=== PATIENT | female | born 1940 | race African-American/Black ===

== ENCOUNTER 2018-08-20 18:03 | Inpatient (IN) | payer OTHER, MEDICAID ==
[~2018-08-20] VITALS: Ht 177.8 cm; Wt 103.4 kg
[~2018-08-20 18:03] MED LIST: ACET-2853 PO; AMLO10TA80 PO; ASPI-1160 PO; ATOR40TA70 PO; CLON0.1T PO; CLOP75TA16 PO; FAMO20TA8 PO; INSASP SQ; LEVE500T19 PO; LISI40TA4 PO; METO-539 PO; MULT-1146 PO; [UNRECOGNIZED DRUG - CODE] PO
[2018-08-20 18:41] LABS: HEMATOCRIT. 33.3 % (36.0-48.0); LYMPHOCYTES % 31.3 % (20.0-50.0); MEAN CORPUSCULAR HEMOGLOBIN 28.7 pg (28.0-32.0); MEAN CORPUSCULAR VOLUME 87.1 fL (81.0-99.0); MEAN PLATELET VOLUME 9.4 fl (7.4-10.4); NEUTROPHILS % 53.7 % (40.0-76.0); PLATELET 209 x1000/uL (130-400); RED BLOOD CELL COUNT 3.83 mill/uL (4.2-5.4); RED CELL DISTRIBUTION WIDTH 16.1 % (11.6-14.6)
[2018-08-20 18:49] LABS: CHLORIDE 96 mEq/L (98-107)
[2018-08-20 18:53] LABS: ETHANOL BLOOD < 10 mg/dL
[2018-08-20 18:56] LABS: LDL CHOLESTEROL 109 mg/dL (5-100)
[2018-08-20] MEDS ORDERED: CEFTRIAXONE 1 G PREMIX 50 ML IV ONE (19:15)
[2018-08-20 19:24] LABS: BG BASE EXCESS 4.5 mmol/L (-2.0-2.0); BG CARBOXYHEMOGLOBIN 0.3 % (0.5-1.5); BG FRACTION INSPIRED OXYGEN 28; BG HCO3 ACT 29.1 mmol/L (22.0-26.0); BG METHEMOGLOBIN 0.5 % (0.0-1.5); BG OXYHEMOGLOBIN 98.2 % (94.0-97.0); BG PCO2 43.6 mmHg (35.0-45.0); BG PH 7.443 (7.350-7.450); BG PO2 145.7 mmHg (75.0-100.0); BG SAMPLE SITE RIGHT RADIAL; BG VENT MODE NASAL CANNULA
[2018-08-20 19:40] LABS: CLARITY URINE CLOUDY (CLEAR); COLOR URINE DARK YELLOW (YELLOW); KETONES URINE TRACE (NEGATIVE); LEUKOCYTE ESTERASE URINE 2+ (NEGATIVE); NITRITE URINE NEGATIVE (NEGATIVE); OCCULT BLOOD URINE 1+ (NEGATIVE); PROTEIN URINE 1+ (NEGATIVE); SPECIFIC GRAVITY URINE 1.023 (1.005-1.030)
[2018-08-20 19:50] LABS: *AMPHETAMINES SCREEN URINE NEGATIVE (NEGATIVE); *BARBITURATES SCREEN URINE NEGATIVE (NEGATIVE); *BENZODIAZEPINES SCREEN URINE NEGATIVE (NEGATIVE); *COCAINE SCREEN URINE NEGATIVE (NEGATIVE); METHADONE URINE SCREEN NEGATIVE (NEGATIVE)
[2018-08-20 19:51] LABS: CANNABINOID URINE SCREEN NEGATIVE (NEGATIVE); OPIATES URINE SCREEN NEGATIVE (NEGATIVE); PHENCYCLIDINE URINE SCREEN NEGATIVE (NEGATIVE)
[2018-08-21] VITALS (10 sets, daily range): BP systolic 120–182; BP diastolic 64–80
[2018-08-21] MEDS ORDERED: DEXTROSE 50% WATER 50ML SYRINGE IV PRN (01:45)
[2018-08-21] MEDS ORDERED: ASPIRIN 300MG SUPP PR PRN (01:45)
[2018-08-21] MEDS ORDERED: ACETAMINOPHEN 650MG SUPP PR PRN (01:45)
[2018-08-21] MEDS ORDERED: MORPHINE SULFATE 4 MG/ML CPJ (NOT FOR IM USE) IV PRN (01:45)
[2018-08-21] MEDS ORDERED: NA P230E RC (03:03)
[2018-08-21] MEDS ORDERED: IPRA3AMP9 HHN (03:03)
[2018-08-21] MEDS ORDERED: BISA10SU62 RC (03:03)
[2018-08-21] MEDS ORDERED: POTA-79 PO (03:03)
[2018-08-21] MEDS ORDERED: MOM MT (03:03)
[2018-08-21] MEDS: DEXT 5%/0.45% NACL KCL 20MEQ/L 1,000 ML IV SCH ×3 (04:06→23:22)
[2018-08-21 06:43] LABS: BASOPHILS % 0.6 % (0.0-2.0); EOSINOPHILS % 2.7 % (0.0-5.0); HEMATOCRIT. 32.2 % (36.0-48.0); HEMOGLOBIN. 10.6 g/dL (12.0-16.0); LYMPHOCYTES % 24.7 % (20.0-50.0); MEAN CORPUSCULAR HEMOGLOBIN 28.4 pg (28.0-32.0); MEAN CORPUSCULAR VOLUME 86.2 fL (81.0-99.0); MEAN PLATELET VOLUME 9.8 fl (7.4-10.4); MONOCYTES % 8.3 % (2.0-8.0); NEUTROPHILS % 63.7 % (40.0-76.0); PLATELET 195 x1000/uL (130-400); RED BLOOD CELL COUNT 3.73 mill/uL (4.2-5.4)
[2018-08-21] MEDS: BLOOD SUGAR DIAGNOSTIC STRIP TEST SCH ×4 (06:45→22:55)
[2018-08-21] MEDS: INSULIN LISPRO 100 UNITS/ML SUBCUT SCH ×4 (07:15→22:55)
[2018-08-21] MEDS: ASPIRIN 300MG SUPP PR SCH ×2 (09:00→10:21)
[2018-08-21] MEDS: ENOXAPARIN 40MG/0.4ML SYR SUBCUT SCH ×2 (09:00→10:19)
[2018-08-21] MEDS ORDERED: POTASSIUM CHLORIDE INJ 40 MEQ in DEXT 5% WATER 250 ML IV SCH (10:00)
[2018-08-21] MEDS: HYDRALAZINE 20MG/ML VIAL IV PRN ×2 (12:51→18:17)
[2018-08-21] MEDS ORDERED: NYSTATIN POWDER 15GM TOP SCH (17:00)
[2018-08-21] MEDS: NYSTATIN POWDER 15GM TOP SCH (18:17)
[2018-08-21] MEDS: ATORVASTATIN CALCIUM 40MG TABLET PO SCH (20:27)
[2018-08-21] MEDS ORDERED: CEFTRIAXONE 1 G PREMIX 50 ML IV SCH (21:00)
[2018-08-21] MEDS: CEFTRIAXONE 1 G PREMIX 50 ML IV SCH (22:56)
[2018-08-21] MEDS: LEVETIRACETAM 500 MG in SODIUM CHLORIDE 0.9% 100 ML IV SCH (23:28)
[2018-08-22] VITALS: BP 199/98
[2018-08-22] MEDS: HYDRALAZINE 20MG/ML VIAL IV PRN ×2 (00:17→09:41)
[2018-08-22 04:00] VITALS: BP 176/76
[2018-08-22] MEDS: INSULIN LISPRO 100 UNITS/ML SUBCUT SCH ×4 (06:11→20:45)
[2018-08-22] MEDS: BLOOD SUGAR DIAGNOSTIC STRIP TEST SCH ×4 (06:11→20:44)
[2018-08-22 07:26] LABS: BASOPHILS % 0.4 % (0.0-2.0); EOSINOPHILS % 0.9 % (0.0-5.0); HEMATOCRIT. 33.8 % (36.0-48.0); HEMOGLOBIN. 11.1 g/dL (12.0-16.0); MEAN CORPUSCULAR HEMOGLOBIN 28.3 pg (28.0-32.0); MEAN CORPUSCULAR VOLUME 86.1 fL (81.0-99.0); MEAN PLATELET VOLUME 9.5 fl (7.4-10.4); NEUTROPHILS % 72.7 % (40.0-76.0); PLATELET 208 x1000/uL (130-400); RED BLOOD CELL COUNT 3.93 mill/uL (4.2-5.4); RED CELL DISTRIBUTION WIDTH 16.1 % (11.6-14.6)
[2018-08-22 07:58] LABS: PHOSPHORUS 2.9 mg/dL (2.5-4.9)
[2018-08-22 08:00] VITALS: BP 187/80
[2018-08-22] MEDS: ASPIRIN 300MG SUPP PR SCH (09:41)
[2018-08-22] MEDS: LEVETIRACETAM 500 MG in SODIUM CHLORIDE 0.9% 100 ML IV SCH ×2 (09:41→20:30)
[2018-08-22] MEDS: ENOXAPARIN 40MG/0.4ML SYR SUBCUT SCH (09:41)
[2018-08-22] MEDS: DEXT 5%/0.45% NACL KCL 20MEQ/L 1,000 ML IV SCH ×2 (09:41→20:31)
[2018-08-22] MEDS: NYSTATIN POWDER 15GM TOP SCH ×3 (09:43→17:33)
[2018-08-22 10:41] LABS: CLARITY URINE CLEAR (CLEAR); COLOR URINE YELLOW (YELLOW); KETONES URINE NEGATIVE (NEGATIVE); LEUKOCYTE ESTERASE URINE 2+ (NEGATIVE); NITRITE URINE NEGATIVE (NEGATIVE); OCCULT BLOOD URINE TRACE (NEGATIVE); PROTEIN URINE 1+ (NEGATIVE); SPECIFIC GRAVITY URINE 1.011 (1.005-1.030); UROBILINOGEN URINE 0.2 E.U./dL (0.2-1.0)
[2018-08-22 12:00] VITALS: BP 161/71
[2018-08-22] MEDS ORDERED: AMLODIPINE 5MG TABLET NG SCH (13:45)
[2018-08-22 16:00] VITALS: BP 152/65
[2018-08-22] MEDS: AMLODIPINE 5MG TABLET NG SCH (17:34)
[2018-08-22 20:00] VITALS: BP 148/62
[2018-08-22] MEDS: ATORVASTATIN CALCIUM 40MG TABLET PO SCH (20:30)
[2018-08-22] MEDS: METOPROLOL TARTRATE 25MG TABLET PO SCH (20:31)
[2018-08-22] MEDS: CEFTRIAXONE 1 G PREMIX 50 ML IV SCH (20:46)
[2018-08-23] VITALS: BP 183/79
[2018-08-23 04:00] VITALS: BP 155/60
[2018-08-23] MEDS: BLOOD SUGAR DIAGNOSTIC STRIP TEST SCH ×4 (06:36→20:45)
[2018-08-23] MEDS: INSULIN LISPRO 100 UNITS/ML SUBCUT SCH ×4 (06:36→20:45)
[2018-08-23 07:05] LABS: HEMATOCRIT. 33.3 % (36.0-48.0); MEAN CORPUSCULAR HEMOGLOBIN 28.7 pg (28.0-32.0); MEAN PLATELET VOLUME 9.7 fl (7.4-10.4); PLATELET 205 x1000/uL (130-400); RED BLOOD CELL COUNT 3.83 mill/uL (4.2-5.4)
[2018-08-23 07:31] LABS: PHOSPHORUS 2.7 mg/dL (2.5-4.9)
[2018-08-23 08:00] VITALS: BP 186/91
[2018-08-23] MEDS: LEVETIRACETAM 500 MG in SODIUM CHLORIDE 0.9% 100 ML IV SCH ×2 (08:38→21:55)
[2018-08-23] MEDS: ASPIRIN 300MG SUPP PR SCH (08:38)
[2018-08-23] MEDS: METOPROLOL TARTRATE 25MG TABLET PO SCH (08:39)
[2018-08-23] MEDS: AMLODIPINE 5MG TABLET NG SCH ×2 (08:39→17:05)
[2018-08-23] MEDS: NYSTATIN POWDER 15GM TOP SCH ×3 (08:39→17:07)
[2018-08-23] MEDS: DEXT 5%/0.45% NACL KCL 20MEQ/L 1,000 ML IV SCH (08:45)
[2018-08-23] MEDS ORDERED: ENOXAPARIN 30MG/0.3ML SYR SUBCUT SCH (09:00)
[2018-08-23] MEDS ORDERED: METOPROLOL TARTRATE 25MG TABLET PO ONE (10:30)
[2018-08-23 12:00] VITALS: BP 119/57
[2018-08-23] MEDS ORDERED: POTASSIUM CHLORIDE INJ 40 MEQ in DEXT 5% WATER 250 ML IV NR (12:00)
[2018-08-23 14:19] LABS: PLATELET ESTIMATE NORMAL
[2018-08-23 16:00] VITALS: BP 147/62
[2018-08-23] MEDS: DEXT 5%/0.45% NACL KCL 40MEQ/L 1,000 ML IV SCH (17:05)
[2018-08-23] MEDS: CLONIDINE 0.2MG TABLET PO SCH ×2 (17:06→21:56)
[2018-08-23] MEDS ORDERED: APIXABAN 2.5 MG TABLET PO SCH (18:00)
[2018-08-23] MEDS: METOPROLOL TARTRATE 50MG TABLET PO SCH (20:47)
[2018-08-23 21:25] VITALS: BP 129/50
[2018-08-23] MEDS: CEFTRIAXONE 1 G PREMIX 50 ML IV SCH (21:54)
[2018-08-23] MEDS: APIXABAN 2.5 MG TABLET PO SCH (21:55)
[2018-08-23] MEDS: ATORVASTATIN CALCIUM 40MG TABLET PO SCH (21:55)
[2018-08-24] VITALS: BP 135/60
[2018-08-24 04:00] VITALS: BP 148/69
[2018-08-24] MEDS: BLOOD SUGAR DIAGNOSTIC STRIP TEST SCH ×4 (06:00→20:24)
[2018-08-24] MEDS: CLONIDINE 0.2MG TABLET PO SCH (06:04)
[2018-08-24] MEDS: INSULIN LISPRO 100 UNITS/ML SUBCUT SCH ×4 (06:18→20:25)
[2018-08-24 06:51] LABS: HEMATOCRIT. 37.3 % (36.0-48.0); HEMOGLOBIN. 12.1 g/dL (12.0-16.0); MEAN CORPUSCULAR HEMOGLOBIN 29.1 pg (28.0-32.0); MEAN CORPUSCULAR VOLUME 89.4 fL (81.0-99.0); RED BLOOD CELL COUNT 4.17 mill/uL (4.2-5.4); RED CELL DISTRIBUTION WIDTH 16.8 % (11.6-14.6)
[2018-08-24 08:00] VITALS: BP 131/70
[2018-08-24] MEDS: METOPROLOL TARTRATE 50MG TABLET PO SCH ×2 (09:00→21:58)
[2018-08-24] MEDS: AMLODIPINE 5MG TABLET NG SCH ×2 (09:00→17:00)
[2018-08-24] MEDS: APIXABAN 2.5 MG TABLET PO SCH ×2 (09:15→17:13)
[2018-08-24] MEDS: DEXT 5%/0.45% NACL KCL 40MEQ/L 1,000 ML IV SCH (09:15)
[2018-08-24] MEDS: LEVETIRACETAM 500 MG in SODIUM CHLORIDE 0.9% 100 ML IV SCH ×2 (09:15→21:57)
[2018-08-24] MEDS: ASPIRIN 81MG TABLET PO SCH (09:22)
[2018-08-24] MEDS: NYSTATIN POWDER 15GM TOP SCH ×2 (09:23→17:14)
[2018-08-24 12:00] VITALS: BP 130/43
[2018-08-24] MEDS: CLONIDINE 0.1MG TABLET PO SCH ×2 (14:00→21:58)
[2018-08-24 14:28] LABS: MEAN PLATELET VOLUME 9.6 fl (7.4-10.4); PLATELET 153 x1000/uL (130-400); PLATELET ESTIMATE NORMAL
[2018-08-24 16:00] VITALS: BP 131/59
[2018-08-24 20:00] VITALS: BP 144/76
[2018-08-24] MEDS: CEFTRIAXONE 1 G PREMIX 50 ML IV SCH (21:57)
[2018-08-24] MEDS: ATORVASTATIN CALCIUM 40MG TABLET PO SCH (21:58)
[2018-08-25] VITALS (8 sets, daily range): BP systolic 100–177; BP diastolic 63–85
[2018-08-25] MEDS: HYDRALAZINE 20MG/ML VIAL IV PRN (03:51)
[2018-08-25] MEDS: CLONIDINE 0.1MG TABLET PO SCH ×2 (05:33→14:22)
[2018-08-25] MEDS: BLOOD SUGAR DIAGNOSTIC STRIP TEST SCH ×3 (05:47→16:45)
[2018-08-25 05:55] LABS: BASOPHILS % 0.6 % (0.0-2.0); EOSINOPHILS % 4.5 % (0.0-5.0); HEMATOCRIT. 35.5 % (36.0-48.0); HEMOGLOBIN. 11.8 g/dL (12.0-16.0); LYMPHOCYTES % 35.9 % (20.0-50.0); MEAN CORPUSCULAR HEMOGLOBIN 29.2 pg (28.0-32.0); MEAN CORPUSCULAR VOLUME 87.6 fL (81.0-99.0); MEAN PLATELET VOLUME 9.7 fl (7.4-10.4); MONOCYTES % 9.9 % (2.0-8.0); NEUTROPHILS % 49.1 % (40.0-76.0); PLATELET 214 x1000/uL (130-400); RED BLOOD CELL COUNT 4.06 mill/uL (4.2-5.4); RED CELL DISTRIBUTION WIDTH 15.9 % (11.6-14.6)
[2018-08-25] MEDS: INSULIN LISPRO 100 UNITS/ML SUBCUT SCH ×3 (06:18→17:15)
[2018-08-25 07:51] LABS: PHOSPHORUS 2.2 mg/dL (2.5-4.9)
[2018-08-25] MEDS: LEVETIRACETAM 500 MG in SODIUM CHLORIDE 0.9% 100 ML IV SCH (08:55)
[2018-08-25] MEDS: ASPIRIN 81MG TABLET PO SCH (08:56)
[2018-08-25] MEDS: AMLODIPINE 5MG TABLET NG SCH ×2 (08:56→17:00)
[2018-08-25] MEDS: APIXABAN 2.5 MG TABLET PO SCH ×2 (08:56→18:07)
[2018-08-25] MEDS: METOPROLOL TARTRATE 50MG TABLET PO SCH (08:57)
[2018-08-25] MEDS: NYSTATIN POWDER 15GM TOP SCH ×3 (08:57→18:07)
[2018-08-25] MEDS ORDERED: POTASSIUM PHOS,M-BASIC-D-BASIC 15 MMOL in DEXT 5% WATER 245 ML IV SCH (10:00)
== END 2018-08-25 21:10 | DRG 64 ==
LOC: ER 18:03 → EDBEDREQ 21:36 → EDBEDREQTM 21:36 → EDBEDREQSVC 21:36 → ENRESERV 22:22 → 5WST 08-21 00:26
PROVIDERS: ADMIT Internal Medicine; ATTEND Internal Medicine
DX: I63.81 Other cerebral infarction due to occlusion or stenosis of small artery (principal); N17.0 Acute kidney failure with tubular necrosis; I50.33 Acute on chronic diastolic (congestive) heart failure; I21.4 Non-ST elevation (NSTEMI) myocardial infarction; N39.0 Urinary tract infection, site not specified; G93.40 Encephalopathy, unspecified; E44.0 Moderate protein-calorie malnutrition; I31.3 Pericardial effusion (noninflammatory); I13.0 Hypertensive heart and chronic kidney disease with heart failure and stage 1 through stage 4 chronic kidney disease, or unspecified chronic kidney disease; I25.10 Atherosclerotic heart disease of native coronary artery without angina pectoris; E87.6 Hypokalemia; E78.5 Hyperlipidemia, unspecified; D64.9 Anemia, unspecified; N18.2 Chronic kidney disease, stage 2 (mild); E03.9 Hypothyroidism, unspecified; E87.8 Other disorders of electrolyte and fluid balance, not elsewhere classified; E86.0 Dehydration; R62.7 Adult failure to thrive; E11.22 Type 2 diabetes mellitus with diabetic chronic kidney disease; G40.909 Epilepsy, unspecified, not intractable, without status epilepticus; M19.90 Unspecified osteoarthritis, unspecified site; F03.90 Unspecified dementia, unspecified severity, without behavioral disturbance, psychotic disturbance, mood disturbance, and anxiety; E78.00 Pure hypercholesterolemia, unspecified; I16.0 Hypertensive urgency; Z82.49 Family history of ischemic heart disease and other diseases of the circulatory system; Z93.1 Gastrostomy status; Z95.5 Presence of coronary angioplasty implant and graft; Z88.8 Allergy status to other drugs, medicaments and biological substances; Z79.82 Long term (current) use of aspirin; Z79.4 Long term (current) use of insulin; Z79.899 Other long term (current) drug therapy; Z68.32 Body mass index [BMI] 32.0-32.9, adult
CPT/HCPCS: 36415; 36600; 70551; 71045; 76770; 80048; 80061; 80305; 80320; 82375; 82550; 82805; 82962; 83036; 83605; 83721; 83735; 83880; 84100; 84134; 84443; 84484; 86850; 86900; 92610; 93005; 93306; 93880; 97110; 97162; 99285; A6261; J0360; J0696; J1650; J1815; J1953; J3480; J3490; J7050; J7060; G0480